=== PATIENT | male | born 1930 | race Hispanic/Latino ===

== ENCOUNTER 2017-10-12 11:55 | Emergency (ER) | payer MEDICARE, MEDICAID ==
--- NOTE | 2017-10-12 12:46 | RAD ---
RIGHT WRIST 3 VIEWS: HISTORY: Injury, right wrist pain. FINDINGS: No acute fracture or dislocation is identified. If symptoms do not improve, a followup exam should be obtained in 7-10 days. POS: [facility]
--- NOTE | 2017-10-12 12:52 | RAD ---
RIGHT ELBOW 4 VIEWS: HISTORY: Fall with injury to elbow. FINDINGS: There are prominent degenerative changes at the elbow with hypertrophic spurring from the coronoid, r adial head, and distal humerus. The cause of the hypertrophic changes, a subtle radial head fracture , cannot be completely excluded; however, I do not see evidence of an acute fracture. If symptoms pe rsist, recommend short-term followup films. POS: [facility]
[2017-10-12] MEDS ORDERED: HYDROcodone/Acetaminophen 5/325 mg Tablet ONE (13:15)
--- NOTE | 2017-10-12 14:09 | CT ---
CT RIGHT ELBOW WITHOUT IV CONTRAST: HISTORY: Fall, injury. Right elbow pain. FINDINGS: Degenerative changes are present. No acute fracture or dislocation is identified. The study was interpreted in consultation with Dr. Elfego Rosas, who concurs. POS: [facility]
== END 2017-10-12 15:01 | disposition home or self-care (01) ==
LOC: ERS 11:55
DX: S40.811A Abrasion of right upper arm, initial encounter (principal); M25.521 Pain in right elbow; E11.9 Type 2 diabetes mellitus without complications; I10 Essential (primary) hypertension; E03.9 Hypothyroidism, unspecified; Z79.4 Long term (current) use of insulin; W19.XXXA Unspecified fall, initial encounter

== ENCOUNTER 2018-07-29 10:13 | Outpatient (CLI) | payer MEDICARE, MEDICAID ==
--- NOTE | 2018-07-29 11:58 | ULT ---
GALLBLADDER ULTRASOUND: HISTORY: Right upper quadrant pain. FINDINGS: Real-time imaging of the right upper quadrant shows a normal-appearing gallbladder. The common duct is 4 mm. Visualized liver parenchyma is heterogeneous with increased echogenicity consistent with fa tty change. Multiple cysts are identified. The largest is a slightly complex 7.2 cm left lobe liver cyst. It shows some internal septations. The right kidney is normal in size and not obstructed. The pancreas is obscured. IMPRESSION: 1. No evidence of gallstones. The technologist reports a negative ultrasound Read's sign. 2. Fatty changes of the liver with multiple hepatic cysts. POS: [facility]
== END 2018-07-29 10:14 | disposition home or self-care (01) ==
LOC: SCSULT 10:13
PROVIDERS: ATTEND Internal Medicine Cardiovascular Disease
DX: K76.89 Other specified diseases of liver (principal); K76.0 Fatty (change of) liver, not elsewhere classified
CPT/HCPCS: 76705

== ENCOUNTER 2018-07-31 06:10 | Day surgery (SDC) | payer MEDICARE, MEDICAID ==
[2018-07-30 12:57] VITALS: BMI 30.5
[2018-07-31 07:14] LABS: #Eosinphils 0.2 thou/uL (0.0-0.7); #Lymphocytes 2.4 thou/uL (1.20-3.40); #Monocytes 0.8 thou/uL (0.11-0.59); #Neutrophils 5.7 thou/uL (1.40-6.50); %Basophils 0.1 % (0.0-1.0); %Eosinophils 2.3 % (0.0-10.0); %Lymphocytes 26.2 % (21.0-51.0); %Neutrophils 62.4 % (42.0-75.0); Hemoglobin 14.1 g/dL (14.0-18.0); Mean Corpuscular Hemoglobin 32.2 pg (27.0-31.0); Mean Platelet Volume 7.9 fL (7.4-10.4); Platelet Count 342 thou/uL (130-400); RBC Distribution Width 11.6 % (11.5-14.5); Red Blood Cell (RBC) Count 4.36 mill/uL (4.70-6.10); White Blood Cell (WBC) Count 9.1 thou/uL (4.8-10.8)
[2018-07-31 07:21] LABS: INR-International Normal Ratio 1.1; Prothrombin Time 13.9 SEC (12.0-14.7)
[2018-07-31 07:36] LABS: ALT (SGPT) 27 U/L (8-55); AST (SGOT) 27 U/L (5-34); Albumin 3.9 g/dL (3.4-4.8); Alkaline Phosphatase 68 U/L (40-150); Anion Gap 13 mmol/L (10-20); BUN (Urea Nitrogen) 23 mg/dL (8.4-25.7); Bilirubin, Total 0.4 mg/dL (0.2-1.2); Calc. Creatinine Clearance 46 mL/min (70-130); Calcium 9.6 mg/dL (7.8-10.44); Carbon Dioxide 22 mmol/L (23-31); Cardiac Risk 3.5 (Less than 4.5); Chloride 102 mmol/L (98-107); Cholesterol 164 mg/dl (< 200 Desired); Estimated GFR-MDRD 49; Glucose 234 mg/dL (83-110); HDL Cholesterol 47 mg/dL (>60 Neg Risk); LDL Cholesterol, Calculated 95 mg/dL; Protein, Total 7.9 g/dL (5.8-8.1); Sodium 133 mmol/L (136-145); Triglycerides 109 mg/dL (Less than 150)
[2018-07-31] MEDS ORDERED: Fentanyl 100 MCG/2 ML VIAL ONE (08:46)
[2018-07-31] MEDS ORDERED: Midazolam HCl 2 mg/2 ml Vial ONE (08:46)
[2018-07-31] MEDS ORDERED: Iopamidol 370 76% 100 ML VIAL ONE (10:48)
== END 2018-07-31 13:20 | disposition home or self-care (01) ==
LOC: CCL 06:10
PROVIDERS: ATTEND Internal Medicine Cardiovascular Disease
PROC: 4A023N7 Measurement of Cardiac Sampling and Pressure, Left Heart, Percutaneous Approach (ICD-10-PCS; principal; 2018-07-31)
PROC: B2011ZZ Plain Radiography of Multiple Coronary Arteries using Low Osmolar Contrast (ICD-10-PCS; 2018-07-31)
DX: I25.10 Atherosclerotic heart disease of native coronary artery without angina pectoris (principal); I10 Essential (primary) hypertension; E03.9 Hypothyroidism, unspecified; E11.9 Type 2 diabetes mellitus without complications; E78.00 Pure hypercholesterolemia, unspecified; K76.89 Other specified diseases of liver; Z79.82 Long term (current) use of aspirin; Z79.84 Long term (current) use of oral hypoglycemic drugs; Z79.899 Other long term (current) drug therapy
CPT/HCPCS: 80053; 80061; 85025; 85610; 85730; 93454; 99152; 99153; C1769; C1887; J1644; J2250; J3010; Q9967